=== PATIENT | female | born 1930 | race Caucasian/White ===

== ENCOUNTER 2016-11-28 11:45 | Inpatient (IN) | payer MEDICARE, OTHER ==
[~2016-11-28 11:45] MED LIST: ARIMIDEX1 MG PO; ASPIR 8181 MG PO; CARBIDOPA-LE1 TAB.SA PO; DIOVAN160 M PO; GLIPIZIDE XL2.5 MG PO; LEXAPRO10 MG PO; NEXIUM40 MG PO; REQUIP1 MG PO; TYLENOL500 MG PO; [UNRECOGNIZED DRUG - OTHER] PO
[2016-11-28] MEDS ORDERED: MILK OF MAGNESIA PO (12:01)
[2016-11-28] MEDS ORDERED: CITRATE OF MAG300 M1 PO (12:02)
[2016-11-28] MEDS ORDERED: OMEPRAZOLE PO (12:05)
[2016-11-28] MEDS ORDERED: LEVAQUIN750 M1 PO (12:06)
[2016-11-28] MEDS ORDERED: ASPIRIN EC81 MG PO (12:07)
[2016-11-28] MEDS ORDERED: SINEMET 25-2501 EAC1 PO (12:07)
[2016-11-28] MEDS ORDERED: CLARITIN10 M6 PO (12:08)
[2016-11-28] MEDS ORDERED: VITAMIN B-121000 MC1 PO (12:08)
[2016-11-28] MEDS ORDERED: DIOVAN320 M1 PO (12:10)
[2016-11-28] MEDS ORDERED: LEXAPRO10 M2 PO (12:10)
[2016-11-28] MEDS ORDERED: NAMENDA XR28 M1 PO (12:11)
[2016-11-28] MEDS ORDERED: COLACE100 M1 PO (12:11)
[2016-11-28] MEDS ORDERED: REQUIP2 M1 PO (12:12)
[2016-11-28] MEDS ORDERED: HYDROCODON-ACE1 EA16 PO (12:13)
[2016-11-28] MEDS ORDERED: PAIN & FEVER325 M1 PO (12:14)
[2016-11-28] MEDS ORDERED: CALMOSEPTINE OI71 G1 TOP ×2 (12:22→12:23)
[2016-11-28] MEDS ORDERED: BISCOLAX10 MG PR (12:24)
[2016-11-28] MEDS ORDERED: FLEET ENEMA133 ML PR (12:25)
[2016-11-28 12:31] LABS: BASO % 0.5 % (0-2); BASO ABSOLUTE COUNT 0.1 tho/cmm (0.0-0.2); EOS % 3.5 % (0-7); EOSINOPHIL ABSOLUTE COUNT 0.4 tho/cmm (0.0-0.7); IMMATURE GRANULOCYTES PERCENT 1.7 % (0-0.3); LYMPH % 13.5 % (20-45); LYMPH ABSOLUTE COUNT 1.6 tho/cmm (0.8-4.5); MCV (MEAN CELL VOLUME) 97.3 fl (82.0-96.0); MONO % 10.6 % (0-12); MONOCYTE ABSOLUTE COUNT 1.2 tho/cmm (0.0-1.2); NEUTROPHIL ABSOLUTE COUNT 8.1 tho/cmm (1.6-8.0); NEUTROPHIL-AUTOMATED 8.1 tho/cmm (1.6-8.0); NEUTROPHILS % 70.2 % (40-80); PLATELET COUNT 239 tho/cmm (150-450); RED BLOOD COUNT 1.84 mil/cmm (4.00-5.20); RED CELL DISTRIBUTION WIDTH 16.5 % (12.4-16.4); WHITE BLOOD COUNT 11.6 tho/cmm (4.0-10.0)
[2016-11-28 12:32] LABS: INR 0.9 INR (0.9-1.1); PROTHROMBIN TIME 10.5 SECONDS (9.0-13.6)
[2016-11-28 12:42] LABS: ALB/GLOB RATIO 0.4 (0.8-2.0); ALBUMIN 1.5 g/dl (3.5-5.0); ALKALINE PHOSPHATASE 164 U/L (33-138); ANION GAP 12 mmol/L (0-20); AST/SGOT 64 U/L (10-40); BILIRUBIN,TOTAL 0.7 mg/dl (0-1.5); BLOOD UREA NITROGEN 63 mg/dl (6-24); CALCIUM 7.4 mg/dl (8.5-10.5); CARBON DIOXIDE-VENOUS 24 mmol/L (22-32); CHLORIDE 114 mmol/l (96-110); CREATININE 1.92 mg/dl (0.50-1.10); GLUCOSE 105 mg/dL (70-110); LIPASE 373 U/L (73-393); POTASSIUM 4.5 mmol/L (3.7-5.1); SODIUM 145 mmol/L (135-145); eGFR VALUE FOR BLACK 27 mL/Min
[2016-11-28 12:45] LABS: URINE BILIRUBIN NEGATIVE (NEG); URINE BLOOD SMALL (NEG); URINE GLUCOSE (UA) NEGATIVE (NEG); URINE KETONE NEGATIVE (NEG); URINE LEUKOCYTE ESTERASE POSITIVE (NEG); URINE NITRITE NEGATIVE (NEG); URINE PROTEIN MODERATE (NEG); URINE SPECIFIC GRAVITY 1.025 (1.003-1.030)
[2016-11-28 12:46] LABS: URINE APPEARANCE CLEAR; URINE COLOR YELLOW
[2016-11-28 12:48] LABS: MCH (MEAN CORPUSCULAR HGB) 30.4 pg (28.0-32.0); MCHC MEAN CORPUSCULAR HGB CONC 31.3 % (32.0-36.0)
[2016-11-28 12:51] LABS: HCT-HEMATOCRIT 17.9 % (34.0-49.0); HGB-HEMOGLOBIN 5.6 gm/dl (12.0-15.5)
[2016-11-28 12:57] LABS: ALT/SGPT 9 U/L (12-78)
[2016-11-28 13:03] LABS: URINE EPITHELIAL CELLS 0-3 /[HPF] (0-10); URINE RBC 0 /[HPF] (0-5)
[2016-11-28 19:29] LABS: HGB-HEMOGLOBIN 7.2 gm/dl (12.0-15.5)
[2016-11-28 19:59] LABS: PROCALCITONIN 0.21 ng/ml (0.05-0.09)
[2016-11-28 20:39] LABS: TSH-THYROID STIMULATING HORM. 3.58 uIU/ml (0.40-3.80)
[2016-11-29 05:54] LABS: BASO % 0.7 % (0-2); BASO ABSOLUTE COUNT 0.1 tho/cmm (0.0-0.2); EOS % 3.7 % (0-7); EOSINOPHIL ABSOLUTE COUNT 0.3 tho/cmm (0.0-0.7); HGB-HEMOGLOBIN 7.3 gm/dl (12.0-15.5); IMMATURE GRANULOCYTES ABSOLUTE 0.23 tho/cmm (0-0.03); LYMPH % 18.9 % (20-45); LYMPH ABSOLUTE COUNT 1.4 tho/cmm (0.8-4.5); MCH (MEAN CORPUSCULAR HGB) 30.7 pg (28.0-32.0); MCHC MEAN CORPUSCULAR HGB CONC 32.9 % (32.0-36.0); MCV (MEAN CELL VOLUME) 93.3 fl (82.0-96.0); MEAN PLATELET VOLUME 9.2 cmc (9.4-12.4); MONO % 7.7 % (0-12); MONOCYTE ABSOLUTE COUNT 0.6 tho/cmm (0.0-1.2); PLATELET COUNT 159 tho/cmm (150-450); RED BLOOD COUNT 2.38 mil/cmm (4.00-5.20); WHITE BLOOD COUNT 7.6 tho/cmm (4.0-10.0)
[2016-11-29 05:59] LABS: HCT-HEMATOCRIT 22.2 % (34.0-49.0)
[2016-11-29 06:13] LABS: ALB/GLOB RATIO 0.4 (0.8-2.0); ALBUMIN 1.4 g/dl (3.5-5.0); ALKALINE PHOSPHATASE 158 U/L (33-138); ANION GAP 10 mmol/L (0-20); AST/SGOT 58 U/L (10-40); BLOOD UREA NITROGEN 58 mg/dl (6-24); C-REACTIVE PROTEIN 8.7 mg/dl (0-0.9); CALCIUM 7.2 mg/dl (8.5-10.5); CARBON DIOXIDE-VENOUS 25 mmol/L (22-32); CHLORIDE 118 mmol/l (96-110); CREATININE 1.56 mg/dl (0.50-1.10); GLUCOSE 75 mg/dL (70-110); POTASSIUM 4.3 mmol/L (3.7-5.1); SODIUM 149 mmol/L (135-145); eGFR VALUE FOR BLACK 34 mL/Min
[2016-11-29 06:22] LABS: ALT/SGPT <10 U/L (12-78)
[2016-11-30 04:18] LABS: BASO % 0.8 % (0-2); BASO ABSOLUTE COUNT 0.1 tho/cmm (0.0-0.2); EOS % 2.5 % (0-7); EOSINOPHIL ABSOLUTE COUNT 0.2 tho/cmm (0.0-0.7); HGB-HEMOGLOBIN 7.4 gm/dl (12.0-15.5); IMMATURE GRANULOCYTES ABSOLUTE 0.21 tho/cmm (0-0.03); IMMATURE GRANULOCYTES PERCENT 2.6 % (0-0.3); LYMPH % 17.5 % (20-45); LYMPH ABSOLUTE COUNT 1.4 tho/cmm (0.8-4.5); MCH (MEAN CORPUSCULAR HGB) 30.5 pg (28.0-32.0); MCHC MEAN CORPUSCULAR HGB CONC 32.2 % (32.0-36.0); MCV (MEAN CELL VOLUME) 94.7 fl (82.0-96.0); MEAN PLATELET VOLUME 9.4 cmc (9.4-12.4); MONO % 9.6 % (0-12); MONOCYTE ABSOLUTE COUNT 0.8 tho/cmm (0.0-1.2); NEUTROPHIL ABSOLUTE COUNT 5.3 tho/cmm (1.6-8.0); NEUTROPHIL-AUTOMATED 5.3 tho/cmm (1.6-8.0); PLATELET COUNT 148 tho/cmm (150-450); RED BLOOD COUNT 2.43 mil/cmm (4.00-5.20); RED CELL DISTRIBUTION WIDTH 17.2 % (12.4-16.4); WHITE BLOOD COUNT 7.9 tho/cmm (4.0-10.0)
[2016-11-30 04:28] LABS: ANION GAP 10 mmol/L (0-20); BLOOD UREA NITROGEN 56 mg/dl (6-24); C-REACTIVE PROTEIN 7.6 mg/dl (0-0.9); CARBON DIOXIDE-VENOUS 24 mmol/L (22-32); CHLORIDE 117 mmol/l (96-110); CREATININE 1.29 mg/dl (0.50-1.10); GLUCOSE 95 mg/dL (70-110); POTASSIUM 4.3 mmol/L (3.7-5.1); SODIUM 147 mmol/L (135-145); eGFR VALUE FOR BLACK 43 mL/Min
[2016-12-01 04:56] LABS: BASO % 0.6 % (0-2); BASO ABSOLUTE COUNT 0.1 tho/cmm (0.0-0.2); EOS % 2.5 % (0-7); EOSINOPHIL ABSOLUTE COUNT 0.2 tho/cmm (0.0-0.7); HCT-HEMATOCRIT 24.8 % (34.0-49.0); HGB-HEMOGLOBIN 7.9 gm/dl (12.0-15.5); IMMATURE GRANULOCYTES PERCENT 2.3 % (0-0.3); LYMPH % 15.3 % (20-45); LYMPH ABSOLUTE COUNT 1.3 tho/cmm (0.8-4.5); MCH (MEAN CORPUSCULAR HGB) 30.3 pg (28.0-32.0); MCHC MEAN CORPUSCULAR HGB CONC 31.9 % (32.0-36.0); MEAN PLATELET VOLUME 9.4 cmc (9.4-12.4); MONO % 8.9 % (0-12); MONOCYTE ABSOLUTE COUNT 0.8 tho/cmm (0.0-1.2); NEUTROPHIL ABSOLUTE COUNT 6.1 tho/cmm (1.6-8.0); NEUTROPHIL-AUTOMATED 6.1 tho/cmm (1.6-8.0); NEUTROPHILS % 70.4 % (40-80); PLATELET COUNT 158 tho/cmm (150-450); RED BLOOD COUNT 2.61 mil/cmm (4.00-5.20); RED CELL DISTRIBUTION WIDTH 16.9 % (12.4-16.4); WHITE BLOOD COUNT 8.7 tho/cmm (4.0-10.0)
[2016-12-01 05:18] LABS: ANION GAP 9 mmol/L (0-20); BLOOD UREA NITROGEN 49 mg/dl (6-24); CALCIUM 7.3 mg/dl (8.5-10.5); CARBON DIOXIDE-VENOUS 25 mmol/L (22-32); CHLORIDE 114 mmol/l (96-110); CREATININE 1.19 mg/dl (0.50-1.10); GLUCOSE 89 mg/dL (70-110); POTASSIUM 4.3 mmol/L (3.7-5.1); SODIUM 144 mmol/L (135-145); eGFR VALUE FOR BLACK 48 mL/Min
[2016-12-02 02:34] LABS: BASO % 0.3 % (0-2); EOS % 1.9 % (0-7); EOSINOPHIL ABSOLUTE COUNT 0.2 tho/cmm (0.0-0.7); HCT-HEMATOCRIT 24.5 % (34.0-49.0); HGB-HEMOGLOBIN 7.8 gm/dl (12.0-15.5); IMMATURE GRANULOCYTES ABSOLUTE 0.17 tho/cmm (0-0.03); IMMATURE GRANULOCYTES PERCENT 1.7 % (0-0.3); LYMPH ABSOLUTE COUNT 1.4 tho/cmm (0.8-4.5); MCH (MEAN CORPUSCULAR HGB) 30.1 pg (28.0-32.0); MCHC MEAN CORPUSCULAR HGB CONC 31.8 % (32.0-36.0); MCV (MEAN CELL VOLUME) 94.6 fl (82.0-96.0); MEAN PLATELET VOLUME 9.4 cmc (9.4-12.4); MONO % 7.5 % (0-12); MONOCYTE ABSOLUTE COUNT 0.7 tho/cmm (0.0-1.2); NEUTROPHIL ABSOLUTE COUNT 7.3 tho/cmm (1.6-8.0); NEUTROPHIL-AUTOMATED 7.3 tho/cmm (1.6-8.0); NEUTROPHILS % 74.6 % (40-80); PLATELET COUNT 180 tho/cmm (150-450); RED BLOOD COUNT 2.59 mil/cmm (4.00-5.20); RED CELL DISTRIBUTION WIDTH 16.5 % (12.4-16.4); WHITE BLOOD COUNT 9.8 tho/cmm (4.0-10.0)
[2016-12-02 02:58] LABS: ANION GAP 9 mmol/L (0-20); BLOOD UREA NITROGEN 44 mg/dl (6-24); CALCIUM 7.2 mg/dl (8.5-10.5); CARBON DIOXIDE-VENOUS 26 mmol/L (22-32); CHLORIDE 113 mmol/l (96-110); CREATININE 1.08 mg/dl (0.50-1.10); GLUCOSE 96 mg/dL (70-110); POTASSIUM 4.4 mmol/L (3.7-5.1); SODIUM 144 mmol/L (135-145); eGFR VALUE FOR BLACK 53 mL/Min
== END 2016-12-03 15:57 | DRG 919 ==
LOC: EDMED 11:45 → EMR2 15:51 → PCUA 19:00 → 5EB 11-29 17:50
PROVIDERS: Emergency Medicine; Family Medicine; Internal Medicine; ADMIT Hospitalist
PROC: 02HV33Z Insertion of Infusion Device into Superior Vena Cava, Percutaneous Approach (ICD-10-PCS; principal; 2016-11-28)
DX: M96.842 Postprocedural seroma of a musculoskeletal structure following a musculoskeletal system procedure (principal); E43 Unspecified severe protein-calorie malnutrition; G93.40 Encephalopathy, unspecified; N17.9 Acute kidney failure, unspecified; E87.0 Hyperosmolality and hypernatremia; E11.22 Type 2 diabetes mellitus with diabetic chronic kidney disease; G20 Parkinson's disease; D62 Acute posthemorrhagic anemia; F02.80 Dementia in other diseases classified elsewhere, unspecified severity, without behavioral disturbance, psychotic disturbance, mood disturbance, and anxiety; Y83.8 Other surgical procedures as the cause of abnormal reaction of the patient, or of later complication, without mention of misadventure at the time of the procedure; I12.9 Hypertensive chronic kidney disease with stage 1 through stage 4 chronic kidney disease, or unspecified chronic kidney disease; I95.9 Hypotension, unspecified; Z66 Do not resuscitate; N18.3 Chronic kidney disease, stage 3 (moderate); M96.840 Postprocedural hematoma of a musculoskeletal structure following a musculoskeletal system procedure; Z85.3 Personal history of malignant neoplasm of breast; Z86.73 Personal history of transient ischemic attack (TIA), and cerebral infarction without residual deficits
CPT/HCPCS: C1751; J7030; J7999; P9016; P9612